=== PATIENT | male | born 1990 | race Caucasian/White ===

== ENCOUNTER 2019-04-23 22:42 | Observation (INO) ==
--- NOTE | 2019-04-23 23:16 | Anesthesia Evaluation PreOp ---
Date of Encounter: 04/23/19 Time of Encounter: 23:15 - Past History Planned Operation: LAP APPENDECTOMY Pulmonary History: Smoker Alcohol Use: occasionally Drug use: none Medications and Allergies No Known Home Drugs 04/23/19 [History] Allergy/AdvReac Type Severity Reaction Status Date / Time No Known Allergies Allergy Verified 04/23/19 22:57 - Meds/Allergy Pre-op Review Medications Reviewed: Yes Allergies Reviewed: Yes Anesthesia Exam Vital Signs/O2 Sat, Most Current Temp Pulse Resp BP Pulse Ox 98.8 F 101 18 142/83 96 04/23/19 22:51 04/23/19 22:51 04/23/19 22:51 04/23/19 22:51 04/23/19 22:51 Weight: 77 KG -BMI 27 NPO (# of Hours): 8 - Cardiac Rhythm: Regular - Pulmonary Breath Sounds: bilateral Clear Anesthesia Assess/Plan ASA Score: 2 Anesthetic Plan: General Monitoring Plan: Standard Monitors Recovery Plan: PACU
[2019-04-23] MEDS ORDERED: *HR* Succinylcholine 200 MG/10 ML VIAL IVP ONE (23:18)
[2019-04-23] MEDS ORDERED: Lidocaine -MPF 2% 2 ML VIAL ONE (23:18)
[2019-04-23] MEDS ORDERED: Ondansetron 4 MG/2 ML VIAL ONE (23:18)
[2019-04-23] MEDS ORDERED: *HR* Propofol 200 MG/20 ML VIAL IVP ONE (23:18)
[2019-04-23] MEDS ORDERED: *HR* Rocuronium Bromide 50 MG/5 ML VIAL ONE (23:18)
[2019-04-23] MEDS ORDERED: Dexamethasone 4 MG/ML VIAL ONE (23:18)
[2019-04-23] MEDS ORDERED: *HR* HYDROMORPHONE 2 MG/ML VIAL ONE (23:18)
[2019-04-23] MEDS ORDERED: Bupivacaine/EPI 1:200k 0.5%PF 30 ML VIAL ONE (23:21)
--- NOTE | 2019-04-23 23:25 | Acute Care Surgery H&P ---
Date of Encounter: 04/23/19 Time of Encounter: 23:15 Assessment and Plan (1) Acute appendicitis Current Visit: No Status: Acute The assessment and plan as outlined above was discussed with the patient and/or family members who expressed understanding and agreement. All questions were answered. Pt diagnosis of acute appendecitis is discussed. Laparoscopic Appendectomy is recommended. Procedure for the surgery, risks and benefits are discussed in detail. Possible known complications for Laparoscopic Appendectomy are bleeding, infection, small intestine or ureter injury, stroke, DVT/PE, NC or . Pt understands these risks, which in this case are low. Pt wishes to proceed with surgery as soon as possible. Informed consent is obtained. Pt condition is stable. Surgery is scheduled. Qualifiers: Acute appendicitis type: with localized peritonitis Appendicitis gangrene presence: without gangrene Qualified Code(s): K35.30 - Acute appendicitis with localized peritonitis, without perforation or gangrene History of Present Illness Chief complaint: RLQ abdominal pain HPI: Mr. Anglin is a 28 year old male presents to [facility] ED from [place] [facility] c/o severe RLQ abdominal pain. Pt reports pain is predominantly in RLQ but, started around belly button. Pain doesn't radiate. Pt reports pain has been present for 24 hours. He states that the pain worsened to the point of intolerence today. Now, the pain is constant and severe. Pt reports nausea and vomiting. Pt denies hematemesis or coffee ground emesis. Pt reports flatus and BM. BM are normal. Pt denies hematochezia or melena. Reports decreased appetite. Denies fever. Past Med Surg Social Fam HX - Past Medical History Medical history: non-contributory Additional medical history: hemorroids Psychiatric history: no psych history - Past Surgical History Additional surgical history: ORIF right arm - Social History Smoking Status: Current every day smoker Smokeless Tobacco Status: Yes Alcohol use: occasionally Drug use: none Medications and Allergies No Known Home Drugs 04/23/19 [History] Allergy/AdvReac Type Severity Reaction Status Date / Time No Known Allergies Allergy Verified 04/23/19 22:57 Review of Systems All systems PM: The remainder of the systems were reviewed and are negative - Constitutional anorexia, no chills, no excessive sweating, no fatigue, no fever(s), no night sweats, no weakness - EENT Nose, mouth and throat: no dry mouth, no dysphagia, no nasal congestion, no nasal discharge, no sinus pain, no sinus pressure, no sore throat - Cardiovascular no chest pain, no diaphoresis, no dyspnea, no edema - Respiratory no cough, no dyspnea, no wheezing - Gastrointestinal abdominal pain, nausea, vomiting, no bloating, no constipation, no diarrhea - Genitourinary no dysuria, no flank pain, no urinary frequency - Musculoskeletal no back pain, no joint swelling, no limited range of motion, no neck pain - Integumentary no dry skin, no pruritus, no rash, no wounds, no jaundice - Neurological no confusion, no dizziness, no focal weakness, no weakness - Psychiatric no anxiety, no depression - Endocrine no fatigue - Hematologic/Lymphatic no easy bleeding, no easy bruising General Surgery Exam Initial Vital Signs Temp Pulse Resp BP Pulse Ox 98.8 F 101 18 142/83 96 04/23/19 22:51 04/23/19 22:51 04/23/19 22:51 04/23/19 22:51 04/23/19 22:51 - General physical appearance no distress, no pain. negative: jaundice - Eyes PERRL, normal ocular movement. negative: icteric - ENT no congestion, dry mucosa. negative: nasal discharge - Neck trachea midline, no venous distension - Respiratory normal respiratory effort, clear to auscultation - Cardiovascular Cardiovascular exam: Present: RRR. Absent: JVD - Abdomen Abdomen general surgery: Present: bowel sounds present, tender, guarding. Absent: distended, rebound, rigid Abdominal Tenderness: Present: RLQ - Genitourinary Present: normal penis with no external lesions - Integumentary Integumentary general surgery: Present: warm and dry - Neurologic Present: CN 2-12 grossly intact, normal coordination - Musculoskeletal Present: normal posture - Psychiatric Psychiatric general surgery: Present: A&Ox3, appropriate Results - Labs All other labs normal. - Imaging CT scan - abdomen: image reviewed (Mildly dilated proximal appendix with appendicolith. Mild surrounding inflammatory changes.) CT scan - pelvis: image reviewed
[2019-04-23] MEDS ORDERED: 0.9 % Sodium Chloride 1,000 ML IVC SCH (23:30)
[2019-04-23] MEDS ORDERED: *HR* Promethazine 25 MG/ML VIAL IVP PRN (23:38)
[2019-04-23] MEDS ORDERED: Acetaminophen IV 1,000 MG/100 ML INFUS..BTL IVPB ONE (23:38)
[2019-04-23] MEDS ORDERED: *HR* HYDROmorphone (PF) 1 MG/ML SYRINGE IVP PRN (23:38)
[2019-04-23] MEDS ORDERED: Ondansetron 4 MG/2 ML VIAL IVP ONE (23:38)
[2019-04-23] MEDS ORDERED: *HR* OxyCODONE Immed Rel 5 MG TABLET PO PRN (23:38)
[2019-04-23] MEDS ORDERED: Albuterol 2.5 MG/3 ML NEBULIZER IH ONE (23:38)
[2019-04-23] MEDS ORDERED: *HR* FentaNYL (PF) 100 MCG/2 ML VIAL IVP ONE (23:51)
[2019-04-23] MEDS ORDERED: *HR* FentaNYL (PF) 100 MCG/2 ML VIAL ONE (23:54)
[2019-04-24] MEDS ORDERED: Ketorolac 30 MG/ML VIAL ONE (00:28)
[2019-04-24] MEDS ORDERED: Neostigmine Methylsulfate 3 MG/3 ML SYRINGE ONE (00:28)
--- NOTE | 2019-04-24 01:38 | Operative Note ---
Date of procedure: 04/24/19 Pre-op diagnosis: Acute appendicitis Post-op diagnosis: same Procedure: Laparoscopic appendectomy Complications: None Anesthesia: GETA Surgeon: Ramiro Cope Was there an assistant teaching professor present: No Estimated blood loss (cc): 10 Specimen: Appendix Condition: stable Disposition: PACU Procedure in Detail: This 28 year-old was taken to the operating room and placed in supine position. Anterior abdominal wall was prepped and draped in the usual sterile fashion. A 2 cm curvilinear incision is made in the infraumbilical area and subcutaneous tissues are dissected to the anterior rectus fascia. Fascia was grasped with a Waylon clamp and elevated. The fascia was divided. Posterior rectus fascia and peritoneum were elevated and divided in the same manner. An Yamini port was inserted and pneumoperitoneum was achieved. The patient is rotated to the left. Under direct visualization after the injection of 0.5% Marcaine a 5 mm port is inserted in suprapubic area and a 10-12 mm port is inserted in the left lower q uadrant. Exploration of the intra-abdominal cavity reveals an acutely inflamed appendix. The appendix is grasped at the tip and elevated. The base of the appendix is identified. A rent was made in the mesoappendix near the base and a linear SUMANTH stapling devices stapled across the appendix at its base. White vascular reload was then used to staple across the mesoappendix. The appendix is removed from the intra-abdominal cavity using an Endo Catch bag. Copious irrigation was carried out in the right pericolic gutter Desir's pouch and pelvis. The fascia at the left lower quadrant port site is closed using 0 Vicryl sutures in an endo-closure device. The pneumoperitoneum was allowed to escape. All ports are removed under direct visualization. Fascia at the infraumbilical incision was closed using 0 Vicryl suture. All skin incisions are closed using 4-0 Monocryl subcuticular stitches. Steri-Strips are placed. Sterile Band-Aids were placed. Patient tolerated procedure well was taken to PACU in good condition.
--- NOTE | 2019-04-24 01:48 | Anesthesia Evaluation Post Op ---
Date of Encounter: 04/24/19 Time of Encounter: 02:13 - Discharge PostOp Status: Transfer Patient to floor (Patient's vital signs have been reviewed. Patient is stable postoperatively and has adequately recovered from anesthesia. Patient is determined to have stable airway patency and respiratory function including respiratory rate and oxygen saturation. Patient has a stable heart rate, blood pressure and adequate hydration. Patients mental status is acceptable. Patients temperature is appropriate. Pain and nausea are adequately controlled)
[2019-04-24] MEDS ORDERED: Ondansetron 4 MG/2 ML VIAL IVP PRN (02:29)
[2019-04-24] MEDS ORDERED: *HR* OxyCODONE/APAP 5/325 TABLET PO PRN (02:29)
[2019-04-24] MEDS ORDERED: 0.9 % Sodium Chloride 1,000 ML IVC SCH (02:29)
[2019-04-24] MEDS ORDERED: Nicotine 21 MG PATCH.TD24 TD SCH (02:36)
[2019-04-24 04:44] LABS: Basophils % 0.2 %; Eosinophils % 0.1 %; Hematocrit 38.8 % (37.5-50.1); Hemoglobin 13.2 g/dL (12.9-16.9); Immature Granulocytes % 0.4 % (0-4); Lymphocytes # 0.7 K/mcL (0.6-4.6); Lymphocytes % 5.5 %; Mean Corpuscular Hemoglobin 29.9 pg (28.0-33.3); Mean Platelet Volume 9.2 fL (9.4-12.4); Monocytes # 0.4 K/mcL (0.0-1.3); Neutrophils # 11.8 K/mcL (1.6-8.9); Platelet Count 216 K/mcL (140-400); Red Blood Count 4.41 M/mcL (4.19-5.50); Red Cell Distribution Width 12.9 % (11.5-14.5); Segmented Neutrophils % 90.8 %
[2019-04-24] MEDS ORDERED: Acetaminophen IV 1,000 MG/100 ML INFUS..BTL IVPB SCH (06:00)
[2019-04-24 07:13] VITALS: BP 95/54
[2019-04-24] MEDS ORDERED: Piperacillin/Tazobactam 3.375 GM in 0.9 % Sodium Chloride Mini Bag 100 ML IVPB SCH ×2 (08:00)
--- NOTE | 2019-04-24 08:23 | Discharge Summary ---
<Clarissa Krishnan - Last Filed: 04/24/19 08:20> Orders not resulted at time of discharge: Pending orders 04/24/19 01:07 Surgical Pathology [PTH] Routine Date of Encounter: 04/24/19 Time of Encounter: 07:00 - Discharge Diagnosis (1) Acute appendicitis Priority: Primary Status: Resolved Qualifiers: Acute appendicitis type: with localized peritonitis Appendicitis gangrene presence: without gangrene Appendicitis perforation presence: without perforation Appendicitis abscess presence: without abscess Qualified Code(s): K35.30 - Acute appendicitis with localized peritonitis, without perforation or gangrene General Surgery Exam Initial Vital Signs Temp Pulse Resp BP Pulse Ox 98.8 F 101 18 142/83 96 04/23/19 22:51 04/23/19 22:51 04/23/19 22:51 04/23/19 22:51 04/23/19 22:51 Vital Signs Temp Pulse Resp BP Pulse Ox 04/24/19 07:09 98.3 F 79 15 95/54 95 04/24/19 05:27 98.3 F 73 16 101/60 94 04/24/19 04:22 98.6 F 79 14 104/63 93 04/24/19 03:09 98.7 F 79 14 120/77 93 04/24/19 02:50 87 16 115/71 93 04/24/19 02:20 98.5 F 81 16 127/66 93 04/24/19 02:10 98.7 F 93 16 123/61 94 04/24/19 02:00 95 16 127/64 94 04/24/19 01:50 73 12 127/75 95 04/24/19 01:40 99.1 F 76 12 115/71 95 04/24/19 00:10 100.6 F H 118 18 130/65 98 04/23/19 23:56 107 16 133/71 93 04/23/19 22:51 98.8 F 101 18 142/83 96 Intake and Output 04/23/19 04/24/19 04/24/19 23:59 07:59 15:59 Intake Total 1477 / 1477 Output Total 110 / 110 Balance 1367 / 1367 Intake: IV Fluids 1477 / 1477 0.9 % Sodium Chloride 1,000 ML 1277 / 1277 @ 125 mls/hr IVC .Q8H [facility] Rx#: [id number] Ofirmev 1,000 mg/100 ml 1,000 100 / 100 mg In 100 ml @ 400 mls/hr IVPB Q6HR [facility] Rx#:[id number] Zosyn 3.375 GM In 0.9 % Sodium 100 / 100 Chloride (Mini-Bag +) 100 ML @ 25 mls/hr IVPB Q8HR [facility] Rx#: [id number] Oral 0 / 0 Output: Urine 100 / 100 Estimated Blood Loss 10 10 Other: Stool Characteristics Normal for Patient Stool Color Brown Weight 76.912 kg VITAL SIGNS: Reviewed. See [facility] GENERAL: In no apparent distress. HEENT: Normocephalic, atraumatic, pupils are equal and reactive, extraocular motions intact, oropharynx is pink and moist, there is no neck adenopathy or JVD noted. CHEST/RESPIRATORY: The thorax is free from signs of trauma. Lung sounds: clear to auscultation, normal respiratory effort CARDIAC: Regular rate and rhythm. Normal S1 and S2, without murmurs, gallops, or rubs. VASCULAR: No Edema. 2+ peripheral pulses. ABDOMEN: soft, expected postoperative tenderness, active bowel sounds. INCISION: Surgical incision is clean, dry, and intact. There are no signs of cellulitis or infection noted. MUSCULOSKELETAL: Good range of motion of all major joints. Extremities without clubbing, cyanosis or edema. NEUROLOGIC EXAM: Alert and oriented x 3. Speech normal. Follows commands. PSYCHIATRIC: Mood normal. SKIN: No rash or lesions. - Hospital Course Hospital course: Mr. Anglin is a 28 year old male who presented on 04/23/2019 for right lower quadrant pain. He underwent laparoscopic appendectomy overnight (04/24/2019). He is ambulating avoiding without difficulty, tolerating diet without nausea or vomiting, vital signs are stable, and he is afebrile. He states his symptoms have completely resolved. We will begin discharge planning to home with a follow-up in the office in approximately 2 weeks. Time spent discussing smoking cessation with patient: 3 to 10 minutes - Time Spent with Patient Total time spent providing and/or coordinating discharge services: - Discharge Medications Prescriptions: New Docusate Sodium [Colace] 100 mg PO BID PRN #30 capsule PRN Reason: Contstipation Ibuprofen 800 mg PO Q8H PRN #30 tablet PRN Reason: Postsurgical pain OxyCODONE Immed Rel [Roxicodone 5 MG] 5 mg PO Q6HR PRN 4 Days #15 tablet PRN Reason: Severe Pain Ondansetron ODT [Zofran ODT] 4 mg SL Q4HR PRN #15 tab.rapdis PRN Reason: Postsurgical nausea Home Medications: Docusate Sodium [Colace] 100 mg PO BID PRN #30 capsule 04/24/19 [Rx] Ibuprofen 800 mg PO Q8H PRN #30 tablet 04/24/19 [Rx] Ondansetron ODT [Zofran ODT] 4 mg SL Q4HR PRN #15 tab.rapdis 04/24/19 [Rx] OxyCODONE Immed Rel [Roxicodone 5 MG] 5 mg PO Q6HR PRN 4 Days #15 tablet 04/24/19 [Rx] Allergies/Adverse Reactions: Allergy/AdvReac Type Severity Reaction Status Date / Time No Known Allergies Allergy Verified 04/23/19 22:57 Date of admission: 04/23/19 23:16 Primary care physician: PCP NONE Discharging clinician: Darin Krishnan, [employer]) Anticipated date of discharge: 04/24/19 Labs on day of discharge: Labs from last 24 hours 04/24/19 04:28 WBC 13.0 H RBC 4.41 Hgb 13.2 D Hct 38.8 MCV 88.0 MCH 29.9 MCHC 34.0 RDW 12.9 Plt Count 216 MPV 9.2 L Immature Gran % 0.4 Seg Neutrophils % 90.8 Lymphocytes % 5.5 Monocytes % 3.0 Eosinophils % 0.1 Basophils % 0.2 Neutrophils # 11.8 H Lymphocytes # 0.7 Monocytes # 0.4 Eosinophils # 0.0 Basophils # 0.0 - Patient Status Disposition: Home, Self-Care Condition: Undetermined Functional capacity at discharge: independent ambulation Overall status at discharge: patient is progressing back to baseline - Discharge Instructions Instructions: Laparoscopic Appendectomy (DC) Follow Up With: Ramiro Garcia [Emergency Provider] - 05/08/19 9:00 am NONE,PCP [Primary Care Provider] - Forms: ED Satisfaction Letter, Work/School Release Additional Instructions: General Surgical Discharge Instructions 1. No pushing, pulling, or lifting greater than 15 lbs for 4 weeks. 2. You may remove your dressings and shower beginning today, but no tub baths, soaking, or swimming for 2 weeks. 3. No driving for one weeks unless otherwise specified and then you may resume driving when you are off narcotics and are safe to react in a car. 4. Apply ice to the abdomen 20 minutes every hour that your week. Take ibuprofen every 8 hours for discomfort. You may alternate the ibuprofen with 1000 mg acetaminophen so that you have medication every 4 hours. If this does not relieve discomfort, you may take the as needed oxycodone. Eat a small snack with pain medication as this will help reduce the risk of nausea. Take narcotics as directed. Do not take more narcotics then directed and do not share your narcotics with any other person. Do not drink alcohol while on narcotics. You can take the Zofran/ondansetron if needed for nausea or with a dose of narcotics to prevent nausea. 5. Take stool softeners (Colace) or a water based laxative (Miralax) while taking narcotics. You may hold for loose stools. 6. Report any fevers greater than 100.5F, increase abdominal discomfort, drainage that looks like pus, increased redness or pain at the surgical site, or any vomiting. 7. Report any pain in the calves, shortness of breath, or rapid heartbeat. 8. Follow-up in the office as directed. 9. If you were prescribed antibiotics, do not stop them without talking to your provider. - Diet and Activity Activity: increase activity as tolerated, return to work once cleared by your PCP/specialist Diet: advance to your usual diet <Darin Raines - Last Filed: 04/24/19 15:21> Orders not resulted at time of discharge: Pending orders 04/24/19 01:07 Surgical Pathology [PTH] Routine Date of Encounter: 04/24/19 General Surgery Exam Initial Vital Signs Temp Pulse Resp BP Pulse Ox 98.8 F 101 18 142/83 96 04/23/19 22:51 04/23/19 22:51 04/23/19 22:51 04/23/19 22:51 04/23/19 22:51 - Hospital Course Hospital course: Mr. Anglin is a 28 year old male - Time Spent with Patient Total time spent providing and/or coordinating discharge services: Date of admission: 04/23/19 23:16 Primary care physician: PCP NONE Labs on day of discharge: Labs from last 24 hours 04/24/19 04:28 WBC 13.0 H RBC 4.41 Hgb 13.2 D Hct 38.8 MCV 88.0 MCH 29.9 MCHC 34.0 RDW 12.9 Plt Count 216 MPV 9.2 L Immature Gran % 0.4 Seg Neutrophils % 90.8 Lymphocytes % 5.5 Monocytes % 3.0 Eosinophils % 0.1 Basophils % 0.2 Neutrophils # 11.8 H Lymphocytes # 0.7 Monocytes # 0.4 Eosinophils # 0.0 Basophils # 0.0 - Attending Attestation I have personally performed a face to face evaluation on this patient. I have reviewed and agree with the care plan. History and Exam by me shows: The patient is seen and evaluated on morning rounds with the acute care surgery team. His preoperative pain syndrome is gone. He is afebrile. He has had successful treatment of acute appendicitis. Discharge from the hospital today. Follow-up acute care surgery clinic 1-2 weeks Darin Raines MD FACS
[2019-04-24] MEDS ORDERED: Ibuprofen 800 MG TABLET PO ONE (08:24)
== END 2019-04-24 09:49 | disposition home or self-care (01) ==
LOC: 3ANU 22:42 → EMEROOARM 22:42 → 3ANU 04-24
PROVIDERS: ADMIT Surgery; ATTEND Surgery